=== PATIENT | male | born 1975 | race Caucasian/White ===

== ENCOUNTER 2020-11-04 17:52 | Emergency (ER) | payer BC ==
[~2020-11-04] VITALS: Ht 180.3 cm; Wt 98.6 kg
[2020-11-04] MEDS ORDERED: benzonatate 100mg capsule PO ONE (20:20)
[2020-11-04 20:29] VITALS: BP 143/90
[2020-11-04] MEDS ORDERED: PRED20TA PO (20:36)
[2020-11-04] MEDS ORDERED: IPRA3AMP31 IH (20:36)
[2020-11-04] MEDS ORDERED: NEBU-208 (20:36)
[2020-11-04] MEDS ORDERED: BENZ-16 PO (20:37)
== END 2020-11-04 20:44 | disposition home or self-care (01) ==
LOC: ER 17:56
DX: U07.1 COVID-19 (principal); J45.909 Unspecified asthma, uncomplicated; Z79.899 Other long term (current) drug therapy; Z86.19 Personal history of other infectious and parasitic diseases
CPT/HCPCS: 99283

== ENCOUNTER 2020-11-07 12:34 | Emergency (ER) | payer BC ==
[~2020-11-07 12:34] MED LIST: BENZ-16 PO; IPRA3AMP31 IH; NEBU-208; PRED20TA PO
== END 2020-11-07 13:07 | disposition left against medical advice (07) ==
LOC: ER 12:34
DX: Z53.21 Procedure and treatment not carried out due to patient leaving prior to being seen by health care provider (principal)

== ENCOUNTER 2024-05-09 23:06 | Emergency (ER) | payer BC ==
[~2024-05-09] VITALS: Ht 182.9 cm; Wt 111.4 kg
[~2024-05-09 23:06] MED LIST changes: -BENZ-16 PO; -PRED20TA PO
[2024-05-09 23:42] LABS: BASOPHILS # (AUTO) 0.1 X10'3 (0-0.2); BASOPHILS % (AUTO) 0.6 % (0-1); EOSINOPHILS # (AUTO) 0.2 X10'3 (0-0.9); EOSINOPHILS % (AUTO) 2.1 % (0-6); HEMATOCRIT 43.7 % (42.0-52.0); HEMOGLOBIN 15.1 g/dl (14.0-17.9); LYMPHOCYTES # (AUTO) 3.1 X10'3 (1.1-4.8); LYMPHOCYTES % (AUTO) 35.7 % (21-51); MEAN CORPUSCULAR HEMOGLOBIN 30.1 PG (27.0-31.0); MEAN CORPUSCULAR HGB CONC 34.6 g/dL (33.0-36.5); MEAN PLATELET VOLUME 7.6 FL (7.4-10.4); MONOCYTES # (AUTO) 0.5 X10'3 (0-0.9); MONOCYTES % (AUTO) 6.4 % (2-12); NEUTROPHILS # (AUTO) 4.7 X10'3 (1.8-7.7); NEUTROPHILS % (AUTO) 55.2 % (42-75); PLATELET COUNT 193 X10'3 (140-440); RED BLOOD COUNT 5.02 X10'6 (4.70-6.10); RED CELL DISTRIBUTION WIDTH 13.2 % (11.5-14.5); WHITE BLOOD COUNT 8.6 X10'3 (4.5-11.0)
[2024-05-09] MEDS: amLODIPine 5mg tablet PO ONE (23:53)
[2024-05-10 00:04] LABS: ALBUMIN 3.6 G/DL (3.4-5.0); ANION GAP 9 (8-16); BLOOD UREA NITROGEN 20 MG/DL (7-18); BUN/CREATININE RATIO 15.9 (10.0-20.0); CALCIUM 8.8 MG/DL (8.5-10.1); CHLORIDE 105 MMOL/L (99-107); CREATININE 1.26 MG/DL (0.60-1.10); GLUCOSE 138 MG/DL (70-104); POTASSIUM 3.8 MMOL/L (3.5-5.1); PRO BRAIN NATRIURETIC PEPTIDE 31 PG/ML (0-125); SODIUM 140 MMOL/L (135-145); TOTAL CARBON DIOXIDE 25.8 MMOL/L (24-32); eCRCL 76 ML/MIN; eGFR 60 ML/MIN
[2024-05-10] MEDS: losartan 50mg tablet PO ONE (00:12)
[2024-05-10] MEDS: hyDRALAzine 10mg tablet PO ONE (01:25)
[2024-05-10] MEDS ORDERED: LOSA-416 PO (02:18)
[2024-05-10] MEDS ORDERED: AMLO10TA PO (02:18)
[2024-05-10 03:02] VITALS: BP 183/125; PULSE 64; RESP 18; TEMP 97.6; O2SAT 94
== END 2024-05-10 03:06 | disposition home or self-care (01) ==
LOC: ER 23:07
DX: I16.0 Hypertensive urgency (principal); I10 Essential (primary) hypertension; J45.909 Unspecified asthma, uncomplicated; Z79.899 Other long term (current) drug therapy
CPT/HCPCS: 36415; 71045; 80048; 83880; 84484; 85025; 93005; 99285